=== PATIENT | female | born 1970 | race American Indian/Alaskan Native ===

== ENCOUNTER 2017-09-03 07:35 | Emergency (ER) | payer OTHER ==
[2017-09-03 07:35] VITALS: BMI 19.7
[2017-09-03 07:52] VITALS: RESP 18; TEMP 98.2; O2SAT 99
[2017-09-03] MEDS ORDERED: Albuterol-Ipratrop 3 mg / 0.5 (3 ml) UD IH STA (07:56)
--- NOTE | 2017-09-03 08:49 | ED PDOC ---
Arrival/HPI - General Chief Complaint: Flu-like Symptoms Time Seen by Provider: 09/03/17 07:55 Historian: Patient - History of Present Illness Narrative History of Present Illness (Text): 09/03/17 08:00 A 47 year old female, whose past medical history includes asthma, bronchitis, and URI, presents to the emergency department for nasal congestion, cough, chills, weakness, chest tightness, watery eyes, and left ear pain, which began about 2 weeks ago. The patient states she has been getting worse. She denies fever, dysuria, diarrhea, or any other complaints at this time. Time/Duration: > week (2 weeks) Symptom Course: Unchanged Activities at Onset: Light Context: Home Past Medical History - Provider Review Nursing Documentation Reviewed: Yes - Past History Past History: No Previous - Infectious Disease Hx of Infectious Diseases: None - Tetanus Immunization Tetanus Immunization: Unknown - Cardiac Hx Cardiac Disorders: Yes Hx Hypertension: Yes - Pulmonary Hx Respiratory Disorders: Yes Hx Asthma: Yes - Neurological Hx Neurological Disorder: No - HEENT Hx HEENT Disorder: No - Renal Hx Renal Disorder: No - Endocrine/Metabolic Hx Endocrine Disorders: No - Hematological/Oncological Hx Blood Disorders: No - Integumentary Hx Dermatological Disorder: No - Musculoskeletal/Rheumatological Hx Musculoskeletal Disorders: No - Gastrointestinal Hx Gastrointestinal Disorders: No - Genitourinary/Gynecological Hx Genitourinary Disorders: No - Psychiatric Hx Psychophysiologic Disorder: No Hx Depression: No Hx Substance Use: Yes (heroin) - Surgical History Hx Kidney Transplant: Yes (donor 2009) Other/Comment: L NEPHRECTOMY - Anesthesia Hx Anesthesia: Yes Hx Anesthesia Reactions: No - Suicidal Assessment Feels Threatened In Home Enviroment: No Family/Social History - Physician Review Nursing Documentation Reviewed: Yes Family/Social History: No Known Family HX Smoking Status: Light Smoker < 10 Cigarettes Daily Hx Alcohol Use: No Hx Substance Use: Yes (heroin) Hx Substance Use Treatment: No Allergies/Home Meds Allergies/Adverse Reactions: Allergies No Known Allergies Allergy (Verified 10/15/16 09:40) Home Medications: Home Meds Medication Instructions Recorded Confirmed Albuterol 0.083% [Albuterol 3 ml IH DAILY 09/03/17 09/03/17 Sulfate 3 Ml] Albuterol HFA [Ventolin HFA 90 2 puff IH [id number] PRN 09/03/17 09/03/17 mcg/actuation (8 g)] Enalapril Maleate [Vasotec] 10 mg PO DAILY 09/03/17 09/03/17 Review of Systems - Physician Review All systems were reviewed & negative as marked: Yes - Review of Systems Constitutional: Other (chills). absent: Fevers Eyes: Other (watery eyes) ENT: Sinus Congestion, Other (left ear pain) Respiratory: Cough Cardiovascular: Other (chest tightness) Gastrointestinal: absent: Diarrhea Genitourinary Female: absent: Dysuria Physical Exam Vital Signs Reviewed: Yes Vital Signs Temp Pulse Resp BP Pulse Ox 09/03/17 07:46 98.2 F 89 18 153/99 H 99 Temperature: Afebrile Blood Pressure: Hypertensive Pulse: Regular Respiratory Rate: Normal Appearance: Positive for: Well-Appearing, Non-Toxic, Comfortable Pain Distress: None Mental Status: Positive for: Alert and Oriented X 3 - Systems Exam Head: Present: Atraumatic, Normocephalic Pupils: Present: PERRL Extroacular Muscles: Present: EOMI Conjunctiva: Present: Normal Pharnyx: No: ERYTHEMA, EXUDATE, TONSILS ENLARGED Nose (Internal): Present: Other (congestion ) Neck: Present: Normal Range of Motion Respiratory/Chest: Present: Clear to Auscultation, Good Air Exchange. No: Respiratory Distress, Accessory Muscle Use Cardiovascular: Present: Regular Rate and Rhythm, Normal S1, S2. No: Murmurs Abdomen: Present: Normal Bowel Sounds. No: Tenderness, Distention, Peritoneal Signs Back: Present: Normal Inspection Upper Extremity: Present: Normal Inspection. No: Cyanosis, Edema Lower Extremity: Present: Normal Inspection. No: Edema Neurological: Present: GCS=15, CN II-XII Intact, Speech Normal Skin: Present: Warm, Dry, Normal Color. No: Rashes Psychiatric: Present: Alert, Oriented x 3, Normal Insight, Normal Concentration Medical Decision Making ED Course and Treatment: 09/03/17 08:49 Impression: A 47 year old female with flu like symptoms. Differential Diagnosis included but are not limited to: Viral syndrome vs. Asthma vs. Pneumonia Plan: -- Chest X-ray -- Duoneb -- Throat Culture -- Rapid Flu Test -- Reassess and disposition Prior Visits: Notes and results from previous visits were reviewed. The patient was last seen in the emergency department on 11/28/16 for neck/back pain, coughing/headache. The patient was discharged home. Progress Notes: 09/03/17 09:20 CXR negative for pneumonia. Flu and rapid strep were both negative. Upon revaluation, the patient states she is feeling better and will follow up with her PMD. - Lab Interpretations Lab Results: Lab Results 09/03/17 07:55: Influenza Typ A,B (EIA) Negative for flu a/b 09/03/17 07:55: Grp A Beta Strep Ag Negative - RAD Interpretation Radiology Orders: 09/03/17 07:56 CHEST TWO VIEWS (PA/LAT) [RAD] Stat - Medication Orders Current Medication Orders: Discontinued Medications Albuterol/Ipratropium (Duoneb 3 Mg/0.5 Mg (3 Ml) Ud) 3 ml IH STAT STA Stop: 09/03/17 07:57 Last Admin: 09/03/17 08:26 Dose: 3 ml - Scribe Statement The provider has reviewed the documentation as recorded by the Avinashibclaudia Naranjo Provider Scribe Attestation: All medical record entries made by the Scribe were at my direction and personally dictated by me. I have reviewed the chart and agree that the record accurately reflects my personal performance of the history, physical exam, medical decision making, and the department course for this patient. I have also personally directed, reviewed, and agree with the discharge instructions and disposition. Disposition/Present on Arrival - Present on Arrival Any Indicators Present on Arrival: No History of DVT/PE: No History of Uncontrolled Diabetes: No Urinary Catheter: No History of Decub. Ulcer: No History Surgical Site Infection Following: None - Disposition Have Diagnosis and Disposition been Completed?: Yes Diagnosis: Viral syndrome Disposition: HOME/ ROUTINE Disposition Time: 09:27 Patient Plan: Discharge Patient Problems: Current Active Problems Problem Status Onset Viral syndrome Acute Condition: IMPROVED Discharge Instructions (ExitCare): Viral Syndrome (ED) Additional Instructions: Ms Farrar, thank you for letting us take care of you today. Your provider was Dr. Martinez. You were treated for Viral syndrome. The emergency medical care you received today was directed at your acute symptoms. If you were prescribed any medication, please fill it and take as directed. It may take several days for your symptoms to resolve. Return to the Emergency Department if your symptoms worsen, do not improve, or if you have any other problems. Please contact your doctor or call one of the physicians/clinics you have been referred to that are listed on the Patient Visit Information form that is included in your discharge packet. Bring any paperwork you were given at discharge with you along with any medications you are taking to your follow up visit. Our treatment cannot replace ongoing medical care by a primary care provider (PCP) outside of the emergency department. Thank you for allowing the [facility] team to be part of your care today. If you had an X-Ray or CT scan: A Radiologist will review the ED reading if any change in treatment is needed we will contact you. If you had a blood, urine, or wound culture: It will take several days for the results, if any change in treatment is needed we will contact you. If you had an STI test: It will take 48 hours for the results. Please call after 1 week if you have not heard back. Prescriptions: Albuterol HFA [Ventolin HFA 90 mcg/actuation (8 g)] 2 puff IH Q4 #1 puff guaiFENesin [guaifENESIN] 200 mg PO Q6 #1 bottle Referrals: [facility] Kristin Req, [Family Provider] - Follow up with primary Forms: [facility] (Mongolian), WORK NOTE
[2017-09-03 09:49] VITALS: BP 156/98; PULSE 80
--- NOTE | 2017-09-03 12:49 | RAD ---
HISTORY: Cough. Rule out pneumonia. COMPARISON: Comparison made with chest radiograph 05/23/2015 TECHNIQUE: Chest PA and lateral FINDINGS: LUNGS: No acute infiltrates. Rounded nodular density left mid lung field overlying the left anterior 5th rib and left posterior 8th rib probably represents nipple shadow artifact. Repeat radiographs with nipple markers in place could be performed confirm and exclude a parenchymal nodule. PLEURA: No significant pleural effusion identified. No pneumothorax apparent. CARDIOVASCULAR: Normal. OSSEOUS STRUCTURES: No significant abnormalities. VISUALIZED UPPER ABDOMEN: Normal. OTHER FINDINGS: None. IMPRESSION: No acute infiltrates. Rounded nodular density left mid lung field overlying the left anterior 5th rib and left posterior 8th rib probably represents nipple shadow artifact. Repeat radiographs with nipple markers in place could be performed confirm and exclude a parenchymal nodule. If this lesion in fact represents a parenchymal nodule, CT scan of the and follow-up CT scan chest recommended. These findings discussed with Dr. Martinez at approximately 11:45 a.m. with written down and read back verification.
== END 2017-09-03 09:50 | disposition home or self-care (01) ==
LOC: ED 07:35
DX: B34.9 Viral infection, unspecified (principal); I10 Essential (primary) hypertension; F17.210 Nicotine dependence, cigarettes, uncomplicated

== ENCOUNTER 2018-11-20 12:44 | Emergency (ER) | payer MEDICAID, OTHER ==
[2018-11-20 12:44] VITALS: BMI 19.7
[2018-11-20 13:13] VITALS: BP 149/86; PULSE 91; RESP 18; TEMP 99.2; O2SAT 97
--- NOTE | 2018-11-20 13:39 | ED PDOC ---
Arrival/HPI - General Chief Complaint: Abdominal Pain Time Seen by Provider: 11/20/18 13:19 Historian: Patient - History of Present Illness Narrative History of Present Illness (Text): 11/20/18 13:36 A 48 year old female, a current smoker, whose past medical history includes hypertension, asthma, and kidney donation, presents to the emergency department complaining of hot flashes for the past 3 weeks. Patient reports associated appetite changes stating she is always hungry but when she eats her stomach feels full. Patient states she is taking vitamin E and estrogen and her LNMP was last month. No abnormal vaginal d/c or rash. Patient reports her hot flashes are progressively getting worse causeing her to have trouble sleeping. Patient states she has lost weight from 130 lbs to 115 lbs. Patient denies any fever, shortness of breath, chest pain, or any other complaints. PMD: Justine White Time/Duration: > week (3 weeks) Symptom Onset: Gradual Symptom Course: Unchanged Activities at Onset: Light Context: Home Past Medical History - Provider Review Nursing Documentation Reviewed: Yes - Past History Past History: No Previous - Infectious Disease Hx of Infectious Diseases: None - Tetanus Immunization Tetanus Immunization: Unknown - Reproductive Currently : No - Cardiac Hx Hypertension: Yes - Pulmonary Hx Asthma: Yes - Neurological Hx Neurological Disorder: No - HEENT Hx HEENT Disorder: No - Renal Hx Renal Disorder: No - Endocrine/Metabolic Hx Endocrine Disorders: No - Hematological/Oncological Hx Blood Disorders: No - Integumentary Hx Dermatological Disorder: No - Musculoskeletal/Rheumatological Hx Musculoskeletal Disorders: No - Gastrointestinal Hx Gastrointestinal Disorders: No - Genitourinary/Gynecological Hx Genitourinary Disorders: No - Psychiatric Hx Depression: No Hx Substance Use: No (DENIES) - Surgical History Hx Kidney Transplant: Yes (donor 2009) Other/Comment: L NEPHRECTOMY - Anesthesia Hx Anesthesia: Yes Hx Anesthesia Reactions: No - Suicidal Assessment Feels Threatened In Home Enviroment: No Family/Social History - Physician Review Nursing Documentation Reviewed: Yes Family/Social History: No Known Family HX Smoking Status: Light Smoker < 10 Cigarettes Daily Hx Alcohol Use: No Hx Substance Use: No (DENIES) Hx Substance Use Treatment: No Allergies/Home Meds Allergies/Adverse Reactions: Allergies No Known Allergies Allergy (Verified 11/20/18 13:13) Home Medications: Home Meds Medication Instructions Recorded Confirmed RX: No Known Home Med 11/20/18 11/20/18 Review of Systems - Physician Review All systems were reviewed & negative as marked: Yes - Review of Systems Constitutional: Other (hot flashes). absent: Fatigue, Fevers Eyes: absent: Vision Changes, Photophobia, Eye Pain ENT: absent: Hearing Changes Respiratory: absent: SOB Cardiovascular: absent: Chest Pain Gastrointestinal: Appetite Changes. absent: Abdominal Pain Genitourinary Female: absent: Dysuria, Frequency Musculoskeletal: absent: Arthralgias, Back Pain Skin: absent: Rash, Pruritis Neurological: absent: Headache, Dizziness Endocrine: absent: Diaphoresis, Polyuria Hemo/Lymphatic: absent: Adenopathy Physical Exam Vital Signs Reviewed: Yes Vital Signs Temp Pulse Resp BP Pulse Ox 11/20/18 13:10 99.2 F 91 H 18 149/86 97 Temperature: Afebrile Blood Pressure: Normal Pulse: Tachycardic Respiratory Rate: Normal Appearance: Positive for: Well-Appearing, Non-Toxic Mental Status: Positive for: Alert and Oriented X 3 - Systems Exam Head: Present: Atraumatic, Normocephalic Pupils: Present: PERRL Extroacular Muscles: Present: EOMI Conjunctiva: Present: Normal Ears: Present: Normal Mouth: Present: Moist Mucous Membranes Pharnyx: Present: Normal. No: ERYTHEMA, EXUDATE, Peritonsilar Swelling, Uvular Deviation, Muffled/Hoarse Voice, Strider Nose (External): Present: Atraumatic Nose (Internal): Present: Normal Inspection Neck: Present: Normal Range of Motion. No: Meningeal Signs, MIDLINE TENDERNESS Respiratory/Chest: Present: Clear to Auscultation, Good Air Exchange. No: Respiratory Distress, Accessory Muscle Use Cardiovascular: Present: Regular Rate and Rhythm, Normal S1, S2. No: Murmurs Abdomen: No: Tenderness, Distention, Peritoneal Signs Back: Present: Normal Inspection. No: CVA Tenderness, Midline Tenderness, Paraspinal Tenderness Upper Extremity: Present: Normal Inspection. No: Cyanosis, Edema Lower Extremity: Present: Normal Inspection. No: Edema Neurological: Present: GCS=15, CN II-XII Intact, Speech Normal, Normal Sensory Function, Normal Cerebellar Funct, Gait Normal Skin: Present: Warm, Dry, Normal Color. No: Rashes Lymphatic: No: Cervical Adenopathy Psychiatric: Present: Alert, Oriented x 3, Normal Insight, Normal Concentration Medical Decision Making ED Course and Treatment: 11/20/18 13:38 Impression: 48 year female presenting to the emergency room complaining of hot flashes, increased satiety and weight loss. Likely endocrine associated issue vs menopause. Pt denies any vaginal complaints or abdominal pain and is nonttp and without peritoneal signs. No meningeal signs or posterior lymphadenopathy. No masses felt on abdominal exam or neck exam but will seek imaging to rule out mass in abdomen given hx of early satiety, weight loss and patient request. Plan: -- CT of Abdomen and Pelvis -- EKG -- Labs -- CBC -- Urine test -- Urinalysis -- Reassess and disposition Prior Visits: Notes and results from previous visits were reviewed. Progress Notes: 11/20/18 16:19 TSH mildly decreased: No clinical indication of thyroid storm however. No vaginal d/c or pelvic pain: but given hot flashes likely menopause related. Patient was informed of exam results and was advised to see an telesales supervisor and an [employer]. I endorsed need for CT scan and pt notes that she does not want to wait for CT scan. I endorsed that given her hx of fullness and hx of kidney donation she requires a CT to make sure she doesnt have any abnormalities such as appendicits, mass etc. 11/20/18 16:19 Leaving Against Medical Advice (AMA): The patient is choosing to leave against medical advice. I have personally explained to the patient that choosing to do so may result in permanent bodily h arm or . I have discussed at great length that without further evaluation and monitoring there may be unforeseen circumstances and/or deterioration causing permanent bodily harm or as a result of their choice. The patient is alert, oriented, and shows the mental capacity to make clear decisions regarding the patients health care at this time. The patient continues to wish to leave against medical advice. In light of the patients decision to leave against medical advice, follow-up has been arranged and the patient is aware of the importance to following up as instructed. The patient has been advised that they should return to the emergency room immediately if they change their mind at any time, or if their condition begins to change or worsen in any way. - Scribe Statement The provider has reviewed the documentation as recorded by the August Roberson All medical record entries made by the Avinashibclaudia were at my direction and personally dictated by me. I have reviewed the chart and agree that the record accurately reflects my personal performance of the history, physical exam, medical decision making, and the department course for this patient. I have also personally directed, reviewed, and agree with the discharge instructions and disposition. Disposition/Present on Arrival - Present on Arrival Any Indicators Present on Arrival: No History of DVT/PE: No History of Uncontrolled Diabetes: No Urinary Catheter: No History of Decub. Ulcer: No History Surgical Site Infection Following: None - Disposition Have Diagnosis and Disposition been Completed?: Yes Diagnosis: Acute abdominal complaint Disposition: AGAINST MEDICAL ADVICE Disposition Time: 16:23 Condition: STABLE Forms: [employer] (Lao)
[2018-11-20 14:20] LABS: ALB/GLOB RATIO 1.4 (1.1-1.8); ALBUMIN 4.2 g/dL (3.0-4.8); ALT/SGPT 14 U/L (7-56); AST/SGOT 34 U/L (14-36); BLOOD UREA NITROGEN 13 mg/dL (7-21); CALCIUM 9.4 mg/dL (8.4-10.5); GFR NON-AFRICAN AMERICAN 53
[2018-11-20 14:31] LABS: BASO # 0.03 K/mm3 (0.0-2.0); BASO % 0.5 % (0.0-3.0); EOS % 0.2 % (1.5-5.0); HEMOGLOBIN 11.1 g/dL (12.0-16.0); LYMPH # 1.6 (1.2-3.4); LYMPH % 28.7 % (22.0-35.0); MEAN CELL VOLUME 78.7 fl (80.0-105.0); MEAN CORPUSCULAR HEMOGLOBIN 25.1 pg (25.0-35.0); MEAN CORPUSCULAR HGB CONC 31.9 g/dl (31.0-37.0); MEAN PLATELET VOLUME 9.7 fl (7.0-11.0); MONO # 0.4 (0.1-0.6); MONO % 6.3 % (1.0-6.0); RBC 4.42 10^6/uL (3.5-6.1); RED CELL DISTRIBUTION WIDTH 15.6 % (11.5-14.5); WHITE BLOOD COUNT 5.6 10^3/uL (4.5-11.0)
[2018-11-20 14:34] LABS: PH,URINE 6.5 (4.7-8.0); URINE BILIRUBIN NEGATIVE (NEGATIVE); URINE BLOOD NEGATIVE (NEGATIVE); URINE GLUCOSE (UA) NEGATIVE (NEGATIVE); URINE LEUKOCYTE ESTERASE NEGATIVE Leu/uL (NEGATIVE); URINE PROTEIN NEGATIVE mg/dL (<30 mg/dL); URINE UROBILINOGEN 0.2 E.U./dL (<1 E.U./dL)
[2018-11-20 14:40] LABS: URINE APPEARANCE CLEAR (CLEAR); URINE COLOR YELLOW (YELLOW)
--- NOTE | 2018-11-21 16:51 | CARD ---
APPROVED REPORT Date of service: 11/20/2018 EKG Measurement Heart [id number] MD [id number] <Conclusion> Normal sinus rhythm Normal Electrocardiogram
== END 2018-11-20 16:25 | disposition left against medical advice (07) ==
LOC: ED 12:44
DX: R10.9 Unspecified abdominal pain (principal); F17.210 Nicotine dependence, cigarettes, uncomplicated; I10 Essential (primary) hypertension